=== PATIENT | male | born 2000 | race Caucasian/White ===

== ENCOUNTER 2023-09-18 22:33 | Observation (INO) | payer BC ==
[2023-09-18 22:47] VITALS: BMI 28.8
[2023-09-18] MEDS: SODIUM CHLORIDE 0.9% 500 ML INFUS.BAG IV ONE (22:55)
[2023-09-18 23:03] LABS: HEMOGLOBIN 15.8 G/dL (11.7-16.9); MCH 30.9 pg (25.7-33.7); MCHC 32.9 g/dl (32.0-35.9); MEAN CELL VOLUME 93.7 fl (80-96); MEAN PLT VOLUME 9.4 fl (7.5-11.1); PLATELET COUNT 187.8 10^3/uL (134-434); RBC 5.12 10^6/uL (4.00-5.60); RDW 13.7 % (11.9-15.9); WHITE BLOOD COUNT 18.3 10^3/uL (4.0-10.8)
[2023-09-18 23:24] LABS: ALBUMIN 4.7 g/dl (3.4-5.0); BILIRUBIN,TOTAL 1.4 mg/dl (0.2-1); CALCIUM 9.6 mg/dl (8.5-10.1); CREATININE 1.4 mg/dl (0.6-1.3); MAGNESIUM 2.1 mg/dL (1.8-2.4); PHOSPHOROUS 3.9 (2.5-4.9); POTASSIUM 4.3 mmol/L (3.5-5.1); TOT PROT 7.1 g/dl (6.4-8.2)
[2023-09-18 23:31] LABS: PLATELET ESTIMATE ADEQUATE
[2023-09-19] MEDS: SODIUM CHLORIDE 1,000 ML IV SCH
[2023-09-19 06:14] VITALS: PULSE 70
[2023-09-19 08:07] LABS: HEMATOCRIT 41.8 % (35.4-49); HEMOGLOBIN 13.6 G/dL (11.7-16.9); MCH 30.7 pg (25.7-33.7); MCHC 32.6 g/dl (32.0-35.9); MEAN CELL VOLUME 94.4 fl (80-96); PLATELET COUNT 175.3 10^3/uL (134-434); RBC 4.43 10^6/uL (4.00-5.60); RDW 14.7 % (11.9-15.9); WHITE BLOOD COUNT 10.1 10^3/uL (4.0-10.8)
[2023-09-19 08:44] VITALS: BP 126/62; RESP 14; TEMP 98.5
[2023-09-19 09:19] LABS: CALCIUM 8.9 mg/dl (8.5-10.1); CREATININE 1.4 mg/dl (0.6-1.3); MAGNESIUM 2.2 mg/dL (1.8-2.4); POTASSIUM 4.1 mmol/L (3.5-5.1)
[2023-09-19 09:43] LABS: PLATELET ESTIMATE ADEQUATE
== END 2023-09-19 08:45 | disposition left against medical advice (07) ==
LOC: FER 22:33 → FM/S 09-19 00:57
PROVIDERS: ADMIT Internal Medicine; ATTEND Internal Medicine
PROC: 3E0337Z Introduction of Electrolytic and Water Balance Substance into Peripheral Vein, Percutaneous Approach (ICD-10-PCS; principal; 2023-09-19)
DX: M62.82 Rhabdomyolysis (principal); N17.9 Acute kidney failure, unspecified
CPT/HCPCS: 36415; 80048; 80053; 81003; 81015; 82550; 82553; 83690; 83735; 84100; 85027; 96361; 99285-25; G0378